=== PATIENT | male | born 1980 | race Caucasian/White ===

== ENCOUNTER 2019-02-26 20:57 | Emergency (ER) | payer MEDICAID ==
[~2019-02-26] VITALS: Ht 165.1 cm; Wt 87.1 kg
[~2019-02-26 20:57] MED LIST: ALBUPOW26
[2019-02-26 22:13] VITALS: BP 153/105
[2019-02-26] MEDS ORDERED: cefTRIAXone SOD 1,000 MG VL IM ONE (23:00)
== END 2019-02-26 23:51 | disposition home or self-care (01) ==
LOC: ER 20:57
DX: S61.412A Laceration without foreign body of left hand, initial encounter (principal); J45.909 Unspecified asthma, uncomplicated; F17.210 Nicotine dependence, cigarettes, uncomplicated; F12.10 Cannabis abuse, uncomplicated; F15.10 Other stimulant abuse, uncomplicated; W22.09XA Striking against other stationary object, initial encounter; Y93.89 Activity, other specified; Y92.61 Building [any] under construction as the place of occurrence of the external cause; Y99.8 Other external cause status
CPT/HCPCS: 12004; 73100; 73120; 96372; 99283; J0696